=== PATIENT | female | born 1990 | race Caucasian/White ===

== ENCOUNTER 2018-01-09 03:40 | Inpatient (IN) | payer MEDICAID ==
[2018-01-09 04:55] LABS: RUPTURE FETAL MEMBRANES POSITIVE (NEGATIVE)
[2018-01-09] MEDS: LACTATED RINGER'S 1,000 ML IV ×3 (05:50→21:15)
[2018-01-09] MEDS: BETAMET NA PHOS/AC(6 MG/ML) 5ML INJ IM (05:50)
[2018-01-09 06:02] LABS: ADD MAN DIFF? NO
[2018-01-09 06:04] LABS: WHITE BLOOD COUNT 11.5 10^3/ul (4.8-10.8)
[2018-01-09 06:04] LABS: BASOPHIL # 0.1 10^3/ul (0.0-0.1); BASOPHILS % 0.5 % (0.0-2.0); EOSINOPHILS # 0.3 10^3/ul (0.0-0.5); EOSINOPHILS % 2.5 % (0.0-7.0); HEMATOCRIT 36.1 % (37.0-47.0); HEMOGLOBIN 12.2 g/dl (12.0-16.0); LYMPHOCYTES # 1.8 10^3/ul (0.8-2.9); LYMPHOCYTES % 15.8 % (15.0-51.0); MEAN CORPUSCULAR HEMOGLOBIN 29.8 pg (29.0-33.0); MEAN CORPUSCULAR HGB CONC 33.8 g/dl (32.0-37.0); MEAN CORPUSCULAR VOLUME 88.3 fl (82.0-101.0); MEAN PLATELET VOLUME 11.6 fl (7.4-10.4); MONOCYTE # 0.8 10^3/ul (0.3-0.9); MONOCYTES % 6.6 % (0.0-11.0); NEUTROPHIL # 8.4 10^3/ul (1.6-7.5); NEUTROPHILS % 73.4 % (39.0-77.0); PLATELET COUNT 176 10^3/UL (140-415); RED BLOOD COUNT 4.09 10^6/ul (4.20-5.40)
[2018-01-09] MEDS ORDERED: AMPICILLIN 2 GM/NS (PMX) 100 ML IV (07:30)
[2018-01-09] MEDS ORDERED: MAGNESIUM SULFATE 4 GM/100 ML 100 ML (07:59)
[2018-01-09] MEDS ORDERED: AMPICILLIN 2 GM/NS (PMX) 100 ML (07:59)
[2018-01-09] MEDS: AMPICILLIN 2 GM/NS (PMX) 100 ML IV (08:23)
[2018-01-09] MEDS: MAGNESIUM SULFATE 4 GM/100 ML 100 ML IV (08:53)
[2018-01-09] MEDS: MAGNESIUM SULFATE 20 GM/500 ML 500 ML IV ×2 (09:19→19:33)
[2018-01-09 09:20] LABS: ADD UMIC YES; UR ASCORBIC ACID NEGATIVE (NEGATIVE); UR BACTERIA MODERATE /HPF (NONE SEEN); UR BILIRUBIN (Dip) NEGATIVE (NEGATIVE); UR BLOOD (Dip) NEGATIVE (NEGATIVE); UR CLARITY CLEAR (CLEAR); UR COLOR YELLOW (YELLOW); UR GLUCOSE (Dip) NEGATIVE (NEGATIVE); UR KETONES (Dip) TRACE mg/dL (NEGATIVE); UR LEUKOCYTE ESTERASE (Dip) TRACE Leu/ul (NEGATIVE); UR NITRITE (Dip) NEGATIVE (NEGATIVE); UR RBC 1 /HPF (0-5); UR SPECIFIC GRAVITY (Dip) 1.008 (1.003-1.030); UR TOTAL PROTEIN (Dip) NEGATIVE (NEGATIVE); UR UROBILINOGEN (Dip) NEGATIVE (NEGATIVE); UR WBC 4 /HPF (0-5)
[2018-01-09] MEDS: ERYTHROMYCIN BASE (EC) 500 MG TAB PO (09:27)
[2018-01-09] MEDS: AZITHROMYCIN 500MG/NS (PMX) 250 ML IVPB (10:03)
[2018-01-09] MEDS ORDERED: AMPICILLIN 1 GM/NS (PMX) 50 ML IV (11:30)
[2018-01-09] MEDS: AMPICILLIN 1 GM/NS (PMX) 50 ML IV ×4 (13:25→23:57)
[2018-01-09 16:18] LABS: MAGNESIUM 5.4 mg/dl (1.7-2.5)
[2018-01-09 21:16] LABS: MAGNESIUM 5.3 mg/dl (1.7-2.5)
[2018-01-10 01:09] LABS: MAGNESIUM 5.5 mg/dl (1.7-2.5)
[2018-01-10] MEDS: AMPICILLIN 1 GM/NS (PMX) 50 ML IV ×6 (04:04→23:55)
[2018-01-10] MEDS: MAGNESIUM SULFATE 20 GM/500 ML 500 ML IV ×3 (05:04→22:49)
[2018-01-10] MEDS: LACTATED RINGER'S 1,000 ML IV ×3 (05:15→21:15)
[2018-01-10] MEDS: BETAMET NA PHOS/AC(6 MG/ML) 5ML INJ IM (05:38)
[2018-01-10] MEDS: AZITHROMYCIN 250 MG in SOD CHLORIDE 0.9% 250 ML IVPB (08:40)
[2018-01-10] MEDS ORDERED: AL HYDROX/MG HYDROX/SIMETH 30 ML CUP PO (17:00)
[2018-01-10] MEDS ORDERED: ACETAMINOPHEN 325 MG TAB PO (17:00)
[2018-01-10] MEDS: DOCUSATE SODIUM 100 MG CAP PO (18:11)
[2018-01-10 19:03] LABS: MAGNESIUM 5.9 mg/dl (1.7-2.5)
[2018-01-11 01:42] LABS: MAGNESIUM 5.9 mg/dl (1.7-2.5)
[2018-01-11] MEDS: AMPICILLIN 1 GM/NS (PMX) 50 ML IV ×5 (04:21→21:09)
[2018-01-11] MEDS: LACTATED RINGER'S 1,000 ML IV ×2 (06:02→16:21)
[2018-01-11 07:47] LABS: MAGNESIUM 5.3 mg/dl (1.7-2.5)
[2018-01-11] MEDS: AZITHROMYCIN 250 MG in SOD CHLORIDE 0.9% 250 ML IVPB (08:33)
[2018-01-11] MEDS: DOCUSATE SODIUM 100 MG CAP PO (08:53)
[2018-01-12] MEDS: AMPICILLIN 1 GM/NS (PMX) 50 ML IV ×6 (00:04→21:43)
[2018-01-12] MEDS: LACTATED RINGER'S 1,000 ML IV ×4 (03:08→21:44)
[2018-01-12] MEDS: DOCUSATE SODIUM 100 MG CAP PO (08:45)
[2018-01-12] MEDS: AZITHROMYCIN 250 MG in SOD CHLORIDE 0.9% 250 ML IVPB (08:51)
[2018-01-13] MEDS: AMPICILLIN 1 GM/NS (PMX) 50 ML IV ×6 (00:57→20:03)
[2018-01-13] MEDS: LACTATED RINGER'S 1,000 ML IV ×3 (06:18→21:15)
[2018-01-13 07:19] LABS: ADD MAN DIFF? NO
[2018-01-13 07:32] LABS: BASOPHILS % 0.4 % (0.0-2.0); EOSINOPHILS # 0.2 10^3/ul (0.0-0.5); EOSINOPHILS % 1.9 % (0.0-7.0); HEMATOCRIT 32.5 % (37.0-47.0); HEMOGLOBIN 10.7 g/dl (12.0-16.0); LYMPHOCYTES # 2.1 10^3/ul (0.8-2.9); MEAN CORPUSCULAR HEMOGLOBIN 29.2 pg (29.0-33.0); MEAN CORPUSCULAR HGB CONC 32.9 g/dl (32.0-37.0); MEAN CORPUSCULAR VOLUME 88.8 fl (82.0-101.0); MONOCYTE # 0.9 10^3/ul (0.3-0.9); MONOCYTES % 8.6 % (0.0-11.0); NEUTROPHILS % 65.5 % (39.0-77.0); PLATELET COUNT 165 10^3/UL (140-415); RED BLOOD COUNT 3.66 10^6/ul (4.20-5.40); RED CELL DISTRIBUTION WIDTH 13.4 % (11.5-14.5)
[2018-01-13 07:32] LABS: WHITE BLOOD COUNT 10.7 10^3/ul (4.8-10.8)
[2018-01-13] MEDS: DOCUSATE SODIUM 100 MG CAP PO (09:19)
[2018-01-13] MEDS: AZITHROMYCIN 250 MG in SOD CHLORIDE 0.9% 250 ML IVPB (09:22)
[2018-01-13] MEDS ORDERED: POLYETHYLENE GLYCOL 17 GM PACKET PO (11:00)
[2018-01-13] MEDS: FERROUS SULFATE (EC) 325 MG TAB PO (18:48)
[2018-01-13] MEDS: PRENATAL VITAMIN PO (18:52)
[2018-01-14] MEDS: AMPICILLIN 1 GM/NS (PMX) 50 ML IV ×7 (00:02→23:50)
[2018-01-14] MEDS: LACTATED RINGER'S 1,000 ML IV ×3 (03:50→23:50)
[2018-01-14] MEDS: FERROUS SULFATE (EC) 325 MG TAB PO (08:54)
[2018-01-14] MEDS: DOCUSATE SODIUM 100 MG CAP PO (08:55)
[2018-01-14] MEDS: AZITHROMYCIN 250 MG in SOD CHLORIDE 0.9% 250 ML IVPB (08:57)
[2018-01-14] MEDS: PRENATAL VITAMIN PO (09:12)
[2018-01-15] MEDS: AMPICILLIN 1 GM/NS (PMX) 50 ML IV ×6 (04:22→23:57)
[2018-01-15] MEDS: LACTATED RINGER'S 1,000 ML IV ×3 (05:15→21:05)
[2018-01-15] MEDS: DOCUSATE SODIUM 100 MG CAP PO (08:51)
[2018-01-15] MEDS: PRENATAL VITAMIN PO (08:51)
[2018-01-15] MEDS: FERROUS SULFATE (EC) 325 MG TAB PO (08:51)
[2018-01-15] MEDS: AZITHROMYCIN 250 MG in SOD CHLORIDE 0.9% 250 ML IVPB (10:03)
[2018-01-16] MEDS: AMPICILLIN 1 GM/NS (PMX) 50 ML IV ×5 (04:48→20:34)
[2018-01-16] MEDS: LACTATED RINGER'S 1,000 ML IV ×3 (06:13→19:07)
[2018-01-16 08:32] LABS: ADD MAN DIFF? NO
[2018-01-16 08:42] LABS: WHITE BLOOD COUNT 8.2 10^3/ul (4.8-10.8)
[2018-01-16 08:42] LABS: BASOPHIL # 0.1 10^3/ul (0.0-0.1); BASOPHILS % 0.6 % (0.0-2.0); EOSINOPHILS # 0.4 10^3/ul (0.0-0.5); EOSINOPHILS % 4.8 % (0.0-7.0); HEMOGLOBIN 11.1 g/dl (12.0-16.0); LYMPHOCYTES # 1.6 10^3/ul (0.8-2.9); LYMPHOCYTES % 20.1 % (15.0-51.0); MEAN CORPUSCULAR HEMOGLOBIN 28.9 pg (29.0-33.0); MEAN CORPUSCULAR HGB CONC 32.6 g/dl (32.0-37.0); MEAN CORPUSCULAR VOLUME 88.5 fl (82.0-101.0); MEAN PLATELET VOLUME 10.8 fl (7.4-10.4); MONOCYTE # 0.9 10^3/ul (0.3-0.9); MONOCYTES % 10.5 % (0.0-11.0); NEUTROPHIL # 4.9 10^3/ul (1.6-7.5); NEUTROPHILS % 59.7 % (39.0-77.0); PLATELET COUNT 172 10^3/UL (140-415); RED BLOOD COUNT 3.84 10^6/ul (4.20-5.40); RED CELL DISTRIBUTION WIDTH 13.2 % (11.5-14.5)
[2018-01-16] MEDS: AZITHROMYCIN 250 MG in SOD CHLORIDE 0.9% 250 ML IVPB (09:25)
[2018-01-16] MEDS: FERROUS SULFATE (EC) 325 MG TAB PO (09:27)
[2018-01-16] MEDS: DOCUSATE SODIUM 100 MG CAP PO (09:27)
[2018-01-16] MEDS: PRENATAL VITAMIN PO (09:28)
[2018-01-17] MEDS: AMPICILLIN 1 GM/NS (PMX) 50 ML IV ×6 (00:10→20:14)
[2018-01-17] MEDS: LACTATED RINGER'S 1,000 ML IV ×3 (03:45→22:07)
[2018-01-17] MEDS: PRENATAL VITAMIN PO (08:26)
[2018-01-17] MEDS: DOCUSATE SODIUM 100 MG CAP PO (08:26)
[2018-01-17] MEDS: FERROUS SULFATE (EC) 325 MG TAB PO (08:26)
[2018-01-18] MEDS: AMPICILLIN 1 GM/NS (PMX) 50 ML IV ×3 (00:16→07:53)
[2018-01-18] MEDS: LACTATED RINGER'S 1,000 ML IV ×2 (06:31→17:04)
[2018-01-18] MEDS: DOCUSATE SODIUM 100 MG CAP PO (08:38)
[2018-01-18] MEDS: PRENATAL VITAMIN PO (08:38)
[2018-01-18] MEDS: FERROUS SULFATE (EC) 325 MG TAB PO (08:38)
[2018-01-18] MEDS: AMOXICILLIN 500 MG CAP PO ×2 (14:04→22:00)
[2018-01-19] MEDS: LACTATED RINGER'S 1,000 ML IV ×3 (03:47→21:17)
[2018-01-19] MEDS: AMOXICILLIN 500 MG CAP PO ×3 (05:57→21:46)
[2018-01-19] MEDS: FERROUS SULFATE (EC) 325 MG TAB PO (08:32)
[2018-01-19] MEDS: DOCUSATE SODIUM 100 MG CAP PO (08:32)
[2018-01-19] MEDS: PRENATAL VITAMIN PO (08:32)
[2018-01-19 14:19] LABS: ADD MAN DIFF? NO
[2018-01-19 14:21] LABS: WHITE BLOOD COUNT 10.5 10^3/ul (4.8-10.8)
[2018-01-19 14:21] LABS: BASOPHILS % 0.4 % (0.0-2.0); EOSINOPHILS # 0.2 10^3/ul (0.0-0.5); EOSINOPHILS % 1.7 % (0.0-7.0); HEMATOCRIT 33.6 % (37.0-47.0); HEMOGLOBIN 11.1 g/dl (12.0-16.0); LYMPHOCYTES # 2.2 10^3/ul (0.8-2.9); LYMPHOCYTES % 20.6 % (15.0-51.0); MEAN CORPUSCULAR HEMOGLOBIN 29.3 pg (29.0-33.0); MEAN CORPUSCULAR VOLUME 88.7 fl (82.0-101.0); MEAN PLATELET VOLUME 10.5 fl (7.4-10.4); MONOCYTE # 0.5 10^3/ul (0.3-0.9); MONOCYTES % 5.1 % (0.0-11.0); NEUTROPHIL # 7.3 10^3/ul (1.6-7.5); NEUTROPHILS % 69.5 % (39.0-77.0); PLATELET COUNT 175 10^3/UL (140-415); RED BLOOD COUNT 3.79 10^6/ul (4.20-5.40); RED CELL DISTRIBUTION WIDTH 13.1 % (11.5-14.5)
[2018-01-20] MEDS: AMOXICILLIN 500 MG CAP PO ×3 (06:09→21:42)
[2018-01-20] MEDS: FERROUS SULFATE (EC) 325 MG TAB PO (08:55)
[2018-01-20] MEDS: PRENATAL VITAMIN PO (08:55)
[2018-01-20] MEDS: DOCUSATE SODIUM 100 MG CAP PO (08:55)
[2018-01-20] MEDS: LACTATED RINGER'S 1,000 ML IV ×2 (10:01→22:36)
[2018-01-21] MEDS: AMOXICILLIN 500 MG CAP PO ×3 (05:41→21:15)
[2018-01-21] MEDS: FERROUS SULFATE (EC) 325 MG TAB PO (08:42)
[2018-01-21] MEDS: PRENATAL VITAMIN PO (08:42)
[2018-01-21] MEDS: DOCUSATE SODIUM 100 MG CAP PO (08:42)
[2018-01-21] MEDS: LACTATED RINGER'S 1,000 ML IV ×2 (10:19→23:05)
[2018-01-22] MEDS: AMOXICILLIN 500 MG CAP PO ×3 (05:49→22:01)
[2018-01-22] MEDS: PRENATAL VITAMIN PO (08:40)
[2018-01-22] MEDS: FERROUS SULFATE (EC) 325 MG TAB PO (08:40)
[2018-01-22] MEDS: DOCUSATE SODIUM 100 MG CAP PO (08:40)
[2018-01-22] MEDS: LACTATED RINGER'S 1,000 ML IV (12:38)
[2018-01-23] MEDS: LACTATED RINGER'S 1,000 ML IV ×2 (00:14→14:54)
[2018-01-23] MEDS: AMOXICILLIN 500 MG CAP PO ×3 (05:50→22:16)
[2018-01-23] MEDS: FERROUS SULFATE (EC) 325 MG TAB PO (09:26)
[2018-01-23] MEDS: DOCUSATE SODIUM 100 MG CAP PO (09:26)
[2018-01-23] MEDS: PRENATAL VITAMIN PO (09:27)
[2018-01-23 14:36] LABS: HEPATITIS B SURFACE ANTIGEN NEGATIVE (NEGATIVE)
[2018-01-23 21:05] LABS: RAPID PLASMA REAGIN NONREACTIVE (NR)
[2018-01-24] MEDS: LACTATED RINGER'S 1,000 ML IV ×2 (03:15→16:07)
[2018-01-24] MEDS: AMOXICILLIN 500 MG CAP PO ×3 (06:15→22:10)
[2018-01-24] MEDS: FERROUS SULFATE (EC) 325 MG TAB PO (09:00)
[2018-01-24] MEDS: DOCUSATE SODIUM 100 MG CAP PO (09:00)
[2018-01-24] MEDS: PRENATAL VITAMIN PO (09:00)
[2018-01-25] MEDS: LACTATED RINGER'S 1,000 ML IV ×2 (04:16→16:27)
[2018-01-25] MEDS: AMOXICILLIN 500 MG CAP PO ×3 (06:00→22:17)
[2018-01-25 08:23] LABS: ADD MAN DIFF? NO
[2018-01-25 08:26] LABS: WHITE BLOOD COUNT 13.6 10^3/ul (4.8-10.8)
[2018-01-25 08:26] LABS: BASOPHILS % 0.1 % (0.0-2.0); EOSINOPHILS # 0.2 10^3/ul (0.0-0.5); EOSINOPHILS % 1.3 % (0.0-7.0); HEMATOCRIT 32.3 % (37.0-47.0); HEMOGLOBIN 10.5 g/dl (12.0-16.0); MEAN CORPUSCULAR HEMOGLOBIN 28.6 pg (29.0-33.0); MEAN CORPUSCULAR HGB CONC 32.5 g/dl (32.0-37.0); MEAN PLATELET VOLUME 11.3 fl (7.4-10.4); MONOCYTES % 7.3 % (0.0-11.0); NEUTROPHILS % 73.7 % (39.0-77.0); PLATELET COUNT 171 10^3/UL (140-415); RED BLOOD COUNT 3.67 10^6/ul (4.20-5.40); RED CELL DISTRIBUTION WIDTH 13.2 % (11.5-14.5)
[2018-01-25 09:09] LABS: INR 0.99; PROTIME 13.2 Sec (11.9-14.9)
[2018-01-25 09:10] LABS: PARTIAL THROMBOPLASTIN TIME 27.8 Sec (25.0-35.0)
[2018-01-25] MEDS: PRENATAL VITAMIN PO (09:48)
[2018-01-25] MEDS: FERROUS SULFATE (EC) 325 MG TAB PO (09:48)
[2018-01-25] MEDS: DOCUSATE SODIUM 100 MG CAP PO (09:48)
[2018-01-26] MEDS: LACTATED RINGER'S 1,000 ML IV ×2 (04:52→17:30)
[2018-01-26] MEDS: AMOXICILLIN 500 MG CAP PO (05:51)
[2018-01-26] MEDS ORDERED: OXYTOCIN 30 UNITS/LR 500 ML BAG IV (07:00)
[2018-01-26] MEDS ORDERED: CARBOPROST 250 MCG INJ IM ×3 (08:00→10:30)
[2018-01-26] MEDS ORDERED: MISOPROSTOL 200 MCG TAB PR ×3 (08:00→10:30)
[2018-01-26] MEDS ORDERED: CEFAZOLIN 2 GM/50 ML (PMX) 50 ML IV (08:00)
[2018-01-26] MEDS ORDERED: METHYLERGONOVINE 0.2 MG INJ IM ×3 (08:00→10:30)
[2018-01-26] MEDS ORDERED: OXYTOCIN 30 UNITS/LR 500 ML IV ×4 (08:00→10:30)
[2018-01-26] MEDS ORDERED: CEFAZOLIN 2 GM/50 ML (PMX) 50 ML IVPB (08:06)
[2018-01-26] MEDS ORDERED: morphine SULFATE/PF (10 MG/10 ML) INJ (08:32)
[2018-01-26] MEDS ORDERED: PHENYLephrine (100 MCG/ML) 5ML SYG ×4 (08:44→09:52)
[2018-01-26] MEDS ORDERED: ONDANSETRON 4 MG INJ ×2 (09:19→09:21)
[2018-01-26] MEDS ORDERED: VASOPRESSIN 20 UNITS INJ (09:23)
[2018-01-26] MEDS ORDERED: HYDROmorphONE (0.2 MG/ML) 10ML SYG IV ×2 (10:00)
[2018-01-26] MEDS ORDERED: HYDROmorphONE 0.5 MG/0.5 ML SYG IV ×2 (10:00)
[2018-01-26] MEDS ORDERED: DIPHENHYDRAMINE 50 MG INJ IV ×2 (10:00)
[2018-01-26] MEDS ORDERED: ALBUTEROL 0.083% (NEB) 2.5 MG/3 ML AMP HHN (10:00)
[2018-01-26] MEDS ORDERED: METOCLOPRAMIDE 10 MG INJ IV (10:00)
[2018-01-26] MEDS ORDERED: NALOXONE (0.4 MG/ML) INJ IV (10:00)
[2018-01-26] MEDS ORDERED: FENTAnyl 50 MCG/ML VIAL IV ×2 (10:00)
[2018-01-26] MEDS: KETOROLAC 30 MG INJ IV (10:19)
[2018-01-26] MEDS: OXYTOCIN 30 UNITS/LR 500 ML IV (10:20)
[2018-01-27] MEDS: KETOROLAC 30 MG INJ IV (07:53)
[2018-01-27 09:23] LABS: WHITE BLOOD COUNT 16.7 10^3/ul (4.8-10.8)
[2018-01-27 09:23] LABS: HEMATOCRIT 25.7 % (37.0-47.0); HEMOGLOBIN 8.8 g/dl (12.0-16.0); MEAN CORPUSCULAR HEMOGLOBIN 29.6 pg (29.0-33.0); MEAN CORPUSCULAR HGB CONC 34.2 g/dl (32.0-37.0); MEAN CORPUSCULAR VOLUME 86.5 fl (82.0-101.0); MEAN PLATELET VOLUME 11.3 fl (7.4-10.4); PLATELET COUNT 144 10^3/UL (140-415); RED BLOOD COUNT 2.97 10^6/ul (4.20-5.40); RED CELL DISTRIBUTION WIDTH 13.2 % (11.5-14.5)
[2018-01-27 09:27] LABS: ADD MAN DIFF? YES; POSITIVE DIFF @See below
[2018-01-27 11:06] LABS: ANISOCYTOSIS 1+ (0-0); BAND NEUTROPHILS #M 2.1 10^3/ul (0.0-0.6); BAND NEUTROPHILS % (M) 13 % (0-4); LYMPHOCYTES #M 2.1 10^3/ul (0.8-2.9); LYMPHOCYTES % (M) 13 % (15-51); MICROCYTOSIS 1+ (0-0); MONOCYTE #M 0.6 10^3/ul (0.3-0.9); MONOCYTES % (M) 4 % (0-11); PLATELET ESTIMATE NORMAL; POLYCHROMASIA 1+ (0-0); SEGMENTED NEUTROPHILS (M) % 70 % (39-77)
[2018-01-27] MEDS: IBUPROFEN 600 MG TAB PO ×2 (11:27→15:17)
[2018-01-27] MEDS: HYDROCODONE/APAP (5/325) TAB PO (15:18)
[2018-01-27] MEDS: PIPER-TAZO 3.375 GM IV (PMX) 100 ML IVPB (18:40)
[2018-01-28] MEDS: IBUPROFEN 600 MG TAB PO ×5 (00:24→23:29)
[2018-01-28] MEDS: PIPER-TAZO 3.375 GM IV (PMX) 100 ML IVPB ×5 (00:25→23:28)
[2018-01-28 11:10] LABS: ADD MAN DIFF? NO
[2018-01-28 11:12] LABS: BASOPHILS % 0.2 % (0.0-2.0); EOSINOPHILS # 0.1 10^3/ul (0.0-0.5); EOSINOPHILS % 0.7 % (0.0-7.0); HEMATOCRIT 25.7 % (37.0-47.0); HEMOGLOBIN 8.6 g/dl (12.0-16.0); LYMPHOCYTES # 0.7 10^3/ul (0.8-2.9); LYMPHOCYTES % 5.5 % (15.0-51.0); MEAN CORPUSCULAR HEMOGLOBIN 29.2 pg (29.0-33.0); MEAN CORPUSCULAR HGB CONC 33.5 g/dl (32.0-37.0); MEAN CORPUSCULAR VOLUME 87.1 fl (82.0-101.0); MEAN PLATELET VOLUME 10.7 fl (7.4-10.4); MONOCYTE # 1.2 10^3/ul (0.3-0.9); MONOCYTES % 8.9 % (0.0-11.0); NEUTROPHIL # 10.8 10^3/ul (1.6-7.5); PLATELET COUNT 125 10^3/UL (140-415); RED BLOOD COUNT 2.95 10^6/ul (4.20-5.40); RED CELL DISTRIBUTION WIDTH 13.3 % (11.5-14.5)
[2018-01-28 11:12] LABS: WHITE BLOOD COUNT 13.1 10^3/ul (4.8-10.8)
[2018-01-28 11:21] LABS: POSITIVE DIFF @See below
[2018-01-28] MEDS: HYDROCODONE/APAP (5/325) TAB PO (15:36)
[2018-01-29] MEDS: PIPER-TAZO 3.375 GM IV (PMX) 100 ML IVPB ×2 (05:56→12:00)
[2018-01-29] MEDS: IBUPROFEN 600 MG TAB PO ×2 (05:57→12:58)
[2018-01-29] MEDS: HYDROCODONE/APAP (5/325) TAB PO (10:27)
== END 2018-01-29 15:05 | disposition home or self-care (01) | DRG 765 ==
LOC: OBT 03:40 → PP1 01-20 18:28 → L-D 01-26 07:29 → PP1 01-26 12:15 → OBT 05:09 → L-D 05:09 → PP1 17:30
PROVIDERS: Specialist
PROC: 10D00Z1 Extraction of Products of Conception, Low, Open Approach (ICD-10-PCS; principal; 2018-01-26 08:00)
PROC: 0UL70ZZ Occlusion of Bilateral Fallopian Tubes, Open Approach (ICD-10-PCS; 2018-01-26 08:00)
PROC: 3E033VJ Introduction of Other Hormone into Peripheral Vein, Percutaneous Approach (ICD-10-PCS; 2018-01-26 08:00)
DX: O34.211 Maternal care for low transverse scar from previous cesarean delivery (principal); O60.14X0 Preterm labor third trimester with preterm delivery third trimester, not applicable or unspecified; O99.89 Other specified diseases and conditions complicating pregnancy, childbirth and the puerperium; O76 Abnormality in fetal heart rate and rhythm complicating labor and delivery; N73.6 Female pelvic peritoneal adhesions (postinfective); Z30.2 Encounter for sterilization; Z3A.34 34 weeks gestation of pregnancy; Z37.0 Single live birth
CPT/HCPCS: 76815; 76818; 81001; 83735; 84112; 85025; 85610; 85730; 86592; 86850; 86900; 86901; 87081; 87086; 87340; 88302; 88307; 99464